=== PATIENT | female | born 2000 | race Caucasian/White ===

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

== ENCOUNTER → 2018-03-29 | Outpatient (REF) | payer MEDICAID ==
[~2018-03-29] MED LIST: IBUP-1022 PO; ZOLO50TA PO; birth control patch
[2018-03-29 20:10] LABS: BASO % 0.5 % (0.0-1.0); EOS # 0.2 10^3/uL (0.0-0.50); EOS % 5.3 % (0.0-3.0); HEMATOCRIT 32.2 % (36.0-47.0); HEMOGLOBIN 9.4 g/dl (12.0-15.5); LYMPH # 1.6 10^3/uL (1.5-6.5); LYMPH % 38.5 % (24.0-44.0); MEAN CORPUSCULAR HEMOGLOBIN 21.2 pg (27.0-33.0); MEAN CORPUSCULAR HGB CONC 29.2 g/dl (32.0-36.5); MEAN CORPUSCULAR VOLUME 72.7 fl (80.0-96.0); MONO # 0.3 10^3/uL (0.0-0.8); MONO % 6.5 % (0.0-5.0); PLATELET COUNT, AUTOMATED 382 10^3/uL (150-450); RED BLOOD COUNT 4.43 10^6/uL (4.00-5.40); WHITE BLOOD COUNT 4.1 10^3/uL (4.0-10.0)
[2018-03-29 20:26] LABS: ALBUMIN 4.1 GM/DL (3.2-5.2); ALT/SGPT 52 U/L (12-78); BILIRUBIN,TOTAL 0.3 MG/DL (0.2-1.0); BLOOD UREA NITROGEN 10 MG/DL (7-18); CALCIUM LEVEL 8.9 MG/DL (8.5-10.1); CARBON DIOXIDE LEVEL 28 MEQ/L (21-32); CHLORIDE LEVEL 107 MEQ/L (98-107); CREATININE FOR GFR 0.65 MG/DL (0.55-1.30); GLUCOSE, FASTING 81 MG/DL (70-100); POTASSIUM SERUM 4.1 MEQ/L (3.5-5.1); SODIUM LEVEL 141 MEQ/L (136-145); TOTAL PROTEIN 7.8 GM/DL (6.4-8.2)
[2018-04-01 00:31] LABS: EBV AB TO NUCLEAR ANTIGEN <18.0 U/mL (0.0-17.9); EBV VIRAL CAPSID AG IgG <18.0 U/mL (0.0-17.9); EBV VIRAL CAPSID AG IgM <36.0 U/mL (0.0-35.9)
== END ==
LOC: M SFHCLERA 17:28
PROVIDERS: ATTEND Physician Assistant
DX: R42 Dizziness and giddiness (principal); R53.83 Other fatigue

== ENCOUNTER → 2018-04-02 | Outpatient (CLI) | payer MEDICAID ==
[2018-04-02 16:30] LABS: PERCENT SATURATION 2.8 % (13.2-45.0)
== END ==
LOC: M WUC 14:17
PROVIDERS: ATTEND Physician Assistant
DX: D64.9 Anemia, unspecified (principal)

== ENCOUNTER → 2018-08-02 | Outpatient (REF) | payer OTHER, MEDICAID ==
[2018-08-02 18:17] LABS: BASO % 0.4 % (0.0-1.0); EOS % 0.5 % (0.0-3.0); HEMOGLOBIN 11.7 g/dl (12.0-15.5); LYMPH # 1.8 10^3/uL (1.5-6.5); LYMPH % 31.7 % (24.0-44.0); MEAN CORPUSCULAR HEMOGLOBIN 24.9 pg (27.0-33.0); MEAN CORPUSCULAR HGB CONC 30.8 g/dl (32.0-36.5); MONO # 0.5 10^3/uL (0.0-0.8); MONO % 8.1 % (0.0-5.0); NEUTROPHILS # 3.3 10^3/uL (1.8-7.7); NEUTROPHILS % 58.9 % (36.0-66.0); PLATELET COUNT, AUTOMATED 274 10^3/uL (150-450); RED BLOOD COUNT 4.69 10^6/uL (4.00-5.40); WHITE BLOOD COUNT 5.6 10^3/uL (4.0-10.0)
[2018-08-02 18:30] LABS: ALT/SGPT 18 U/L (12-78); BILIRUBIN,TOTAL 0.4 MG/DL (0.2-1.0); BLOOD UREA NITROGEN 10 MG/DL (7-18); CALCIUM LEVEL 9.1 MG/DL (8.5-10.1); CARBON DIOXIDE LEVEL 24 MEQ/L (21-32); CHLORIDE LEVEL 107 MEQ/L (98-107); CHOLESTEROL LEVEL 216 MG/DL (<200); CHOLESTEROL RISK RATIO 3.085 (<5); CREATININE FOR GFR 0.56 MG/DL (0.55-1.30); FREE T4 1.09 NG/DL (0.78-1.33); GLUCOSE, FASTING 63 MG/DL (70-100); HDL CHOLESTEROL 70 MG/DL (>40); LDL CHOLESTEROL 131 MG/DL (<100); NON-HDL-C 146 MG/DL; SODIUM LEVEL 138 MEQ/L (136-145); TOTAL PROTEIN 7.4 GM/DL (6.4-8.2); TRIGLYCERIDES LEVEL 77 MG/DL (<150)
[2018-08-02 18:32] LABS: TOTAL 25(OH) VITAMIN D 14.1 NG/ML (30.0-100.0)
[2018-08-02 19:02] LABS: HEMOGLOBIN A1c 5.4 %
[2018-08-05 00:07] LABS: Lyme Disease IgG/IgM Antibodie <0.91 ISR (0.00-0.90); Lyme Disease IgM Ab Quantitati <0.80 index (0.00-0.79)
== END ==
LOC: M LAB REF 16:57
DX: Z13.228 Encounter for screening for other metabolic disorders (principal)

== ENCOUNTER 2018-08-16 18:35 | Emergency (ER) | payer MEDICAID, OTHER ==
[~2018-08-16] VITALS: Ht 162.6 cm; Wt 52.4 kg
[2018-08-16] MEDS ORDERED: ESCI10TA2 (18:41)
[2018-08-16] MEDS ORDERED: NORGTAB2 (18:41)
[2018-08-16] MEDS ORDERED: VITA500045 (18:41)
[2018-08-16] MEDS ORDERED: MIRA3350 PO (21:16)
[2018-08-16 21:27] VITALS: BP 110/62
[2018-08-16] MEDS ORDERED: MAGNESIUM CITRATE 300 ML BTL PO ONE (21:30)
--- NOTE | 2018-08-17 01:11 | REP ---
Clinical: 2 weeks abdominal pain. Technique: Upright view of the chest with supine and upright views of the abdomen and pelvis. Findings: Frontal upright view of the chest demonstrates no acute cardiopulmonary process or free air below the diaphragm to suspect pneumoperitoneum. Supine and upright views of the abdomen and pelvis demonstrate nonspecific bowel gas pattern without obstruction or perforation. No organomegaly. No abnormal calcifications. Skeletal structures normal for age. Impression: Nonspecific bowel gas pattern. Electronically Signed by Simon Ambriz MD 08/17/2018 01:03 A
== END 2018-08-16 21:38 | disposition home or self-care (01) ==
LOC: M ED 18:35
DX: K59.00 Constipation, unspecified (principal); Z79.899 Other long term (current) drug therapy; Z79.3 Long term (current) use of hormonal contraceptives

== ENCOUNTER 2019-12-30 16:58 | Emergency (ER) | payer OTHER, SELFPAY ==
[~2019-12-30] VITALS: Ht 162.6 cm; Wt 57.5 kg
[~2019-12-30 16:58] MED LIST changes: +ESCI10TA2; +MIRA3350 PO; +NORGTAB2; +VITA500045
[2019-12-30 16:59] VITALS: BP 141/64
[2019-12-30] MEDS ORDERED: TETRACAINE 0.5% OPHTH SOLN 4ML OS ONE (18:15)
[2019-12-30] MEDS ORDERED: ACETAMINOPHEN TAB 650MG DOSE (2X325MG) PO ONE (18:15)
== END 2019-12-30 19:12 | disposition home or self-care (01) ==
LOC: M ED 16:58
DX: H57.13 Ocular pain, bilateral (principal)

== ENCOUNTER → 2022-03-02 | Outpatient (REF) ==
[~2022-03-02] MED LIST changes: +ESCI10TA16; -ESCI10TA2
[2022-03-02 13:21] LABS: RSV AMPLIFICATION NEGATIVE (NEGATIVE)
== END ==
LOC: M LABSMTC 11:11
PROVIDERS: ATTEND Family Medicine
DX: Z11.52 Encounter for screening for COVID-19 (principal)

== ENCOUNTER → 2025-03-23 | Outpatient (REF) | payer MEDICAID ==
[~2025-03-23] MED LIST changes: -IBUP-1022 PO; +IBUP600T42 PO
[2025-03-23 17:53] LABS: ALT/SGPT 16 U/L (7.0-40); AST/SGOT 16 U/L (<34); CALCIUM LEVEL 9.6 MG/DL (8.5-10.1); CARBON DIOXIDE LEVEL 27 MMOL/L (20-31); CHLORIDE LEVEL 106 MMOL/L (98-107); CHOLESTEROL LEVEL 181 MG/DL (<200); CHOLESTEROL RISK RATIO 3.77 (<5); CREATININE FOR GFR 0.70 MG/DL (0.55-1.30); GLOMERULAR FILTRATION RATE > 90.0 (>60); LDL CHOLESTEROL 113.8 MG/DL (<100); NON-HDL-C 133.0 MG/DL; POTASSIUM SERUM 4.4 MMOL/L (3.5-5.1); SODIUM LEVEL 141 MMOL/L (136-145); TRIGLYCERIDES LEVEL 96 MG/DL (<150)
== END ==
LOC: M LAB REF 16:22
PROVIDERS: ATTEND Family Medicine Addiction Medicine
DX: E78.5 Hyperlipidemia, unspecified (principal)